=== PATIENT | male | born 1975 | race Caucasian/White ===

== ENCOUNTER 2017-06-27 12:47 | Emergency (ER) | payer OTHER ==
--- NOTE | 2017-06-27 14:13 | ED Physician Documentation ---
PD HPI FOCAL NEURO - Stated complaint Stated Complaint: DIZZY - Chief complaint Chief Complaint: Neuro - History obtained from History obtained from: Patient - History of Present Illness Timing - onset: How many days ago (5) Timing - duration: Days (5) Timing - details: Abrupt onset (with position change at the time), Waxing and waning Severity of deficit: Moderate (when he moves his head or gets up; no dizziness when he sits still/ holds head still.) Weakness: No: Face, Arm, Hand, Leg, Foot, Right, Left, Other Numbness: No: Face, Arm, Hand, Leg, Foot, Right, Left, Other Associated symptoms: Nausea / vomiting (nauseated when feeling most dizzy, improves when resting). No: Headache, Syncope, Fall, Head injury, Fever Baseline status: positive: A&OX3, ambulatory, indep Similar symptoms before: Has not had sx before Recently seen: Not recently seen Review of Systems Constitutional: denies: Fever, Chills Eyes: denies: Loss of vision, Decreased vision Ears: denies: Loss of hearing, Ear pain, Drainage/discharge, Tinnitus/ringing Nose: reports: Congestion. denies: Rhinorrhea / runny nose, Sinus pressure / pain Throat: denies: Sore throat Respiratory: denies: Cough Skin: denies: Rash, Lesions Neurologic: denies: Focal weakness, Numbness, Altered mental status, Headache, Head injury PD PAST MEDICAL HISTORY - Past Medical History Past Medical History: Yes Cardiovascular: Hypertension Respiratory: Asthma Neuro: Headache/migraine - Past Surgical History Past Surgical History: No - Present Medications Home Medications: Ambulatory Orders Medication Instructions Recorded Confirmed Albuterol Sulfate [Proventil Hfa 1 - 2 puffs INH Q4H PRN 06/27/17 06/27/17 Inhaler] Dexamethasone [Decadron] 4 mg PO DAILY #5 tablet 06/27/17 Lisinopril 20 mg PO DAILY 06/27/17 06/27/17 Meclizine [Antivert] 25 mg PO Q6H PRN #30 tablet 06/27/17 - Allergies Allergies/Adverse Reactions: Allergies Allergy/AdvReac Type Severity Reaction Status Date / Time No Known Drug Allergies Allergy Verified 06/27/17 12:58 - Social History Does the pt smoke?: Yes Smoking Status: Current every day smoker PD ED PE NORMAL - Vitals Vital signs reviewed: Yes - General General: Alert and oriented X 3, No acute distress, Well developed/nourished - HEENT HEENT: PERRL, EOMI (with nystagmus to the right), Ears normal, Pharynx benign - Neck Neck: Supple, no meningeal sign, No adenopathy, No bruit - Cardiac Cardiac: RRR, No murmur - Respiratory Respiratory: Clear bilaterally - Derm Derm: Normal color, Warm and dry, No rash - Extremities Extremities: No tenderness to palpate, Normal ROM s pain - Neuro Neuro: Alert and oriented X 3, 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 Seems peripheral. ), d/w patient Departure - Departure Disposition: Home, Self Care Clinical Impression: Vertigo Condition: Stable Record reviewed to determine appropriate education?: Yes Instructions: ED Vertigo Unspecified Follow-Up: [facility] [Provider Group] Prescriptions: Meclizine [Antivert] 25 mg PO Q6H PRN #30 tablet PRN Reason: Vertigo Dexamethasone [Decadron] 4 mg PO DAILY #5 tablet Comments: Activity and position as tolerated to reduce the vertigo symptoms. No vigorous activity and be safe for the next 2-3 days. Decadron daily for the 5 more days to reduce inflammation. Meclizine every 6-8 hours as needed for dizziness. Recheck if not better over the next several days and return sooner if other associated or diffuse symptoms develop. Discharge Date/Time: 06/27/17 15:15
[2017-06-27] MEDS ORDERED: MECLIZINE 12.5 MG TABLET PO STA (14:50)
[2017-06-27] MEDS ORDERED: DEXAMETHASONE 10 MG/ML VIAL PO STA (14:50)
[2017-06-27] MEDS ORDERED: MECLIZINE 12.5 MG TABLET PO ONE (15:01)
[2017-06-27] MEDS ORDERED: CHERRY SYRUP 10 ML UDC PO ONE (15:02)
[2017-06-27] MEDS ORDERED: DEXAMETHASONE 10 MG/ML VIAL ONE (15:02)
[2017-06-27 15:15] VITALS: BP 138/97
== END 2017-06-27 15:15 | disposition home or self-care (01) ==
LOC: ED 12:47
DX: R42 Dizziness and giddiness (principal); I10 Essential (primary) hypertension; J45.909 Unspecified asthma, uncomplicated; F17.200 Nicotine dependence, unspecified, uncomplicated
CPT/HCPCS: 99283; A9270

== ENCOUNTER 2021-06-26 15:07 | Emergency (ER) | payer OTHER ==
[2021-06-26 15:19] VITALS: BP 149/93
--- NOTE | 2021-06-26 16:17 | XRAY Report ---
PROCEDURE: Shoulder 3 View LT INDICATIONS: fall shoulder pain TECHNIQUE: 3 views of the shoulder were acquired. COMPARISON: None. FINDINGS: Bones: No fractures or dislocations. No suspicious bony lesions. Visualized ribs appear intact. Soft tissues: No suspicious soft tissue calcifications. IMPRESSION: No visualized acute fracture or dislocation. However, occult injury cannot be excluded. Recommend short interval imaging follow-up in 7-10 days as clinically indicated for additional evalua tion. Reviewed by: Ofelia Gann MD on 06/26/2021 4:16 PM PDT Approved by: Ofelia Gann MD on 06/26/2021 4:16 PM PDT Station ID: [id number]
--- NOTE | 2021-06-26 16:29 | ED Physician Documentation ---
History of Present Illness - Stated complaint Stated Complaint: L SHOULDER PX - Chief complaint Chief Complaint: Trauma Ext - History obtained from History obtained from: Patient - History of Present Illness Timing: Last night Pain level max: 8 Pain level now: 6 - Additonal information Additional information: 45-year-old male presents to the emergency department with left shoulder pain after sliding into a base while playing softball last night. Pain increased today. Worse with movement, better with rest. No prior shoulder injuries. No headache. No neck pain. No back pain. Taken Motrin without relief. Review of Systems Constitutional: denies: Fever, Chills GI: denies: Vomiting, Diarrhea Neurologic: denies: Headache PD PAST MEDICAL HISTORY - Past Medical History Past Medical History: Yes Cardiovascular: Hypertension Respiratory: Asthma Neuro: None Endocrine/Autoimmune: None GI: None : None HEENT: None Psych: None Musculoskeletal: None Derm: None - Past Surgical History Past Surgical History: No - Present Medications Home Medications: Ambulatory Orders Medication Instructions Recorded Confirmed Albuterol Sulfate [Proventil Hfa 1 - 2 puffs INH Q4H PRN 06/27/17 06/27/17 Inhaler] Meclizine [Antivert] 25 mg PO Q6H PRN #30 tablet 06/27/17 dexAMETHasone [Decadron] 4 mg PO DAILY #5 tablet 06/27/17 lisinopriL [Lisinopril] 20 mg PO DAILY 06/27/17 06/27/17 - Allergies Allergies/Adverse Reactions: Allergies Allergy/AdvReac Type Severity Reaction Status Date / Time No Known Drug Allergies Allergy Verified 06/27/17 12:58 - Social History Does the pt smoke?: Yes Smoking Status: Current every day smoker PD ED PE NORMAL - Vitals Vital signs reviewed: Yes - General General: Alert and oriented X 3, No acute distress, Well developed/nourished - HEENT HEENT: Atraumatic, PERRL, Moist mucous membranes - Neck Neck: Supple, no meningeal sign, No bony TTP - Cardiac Cardiac: RRR, Strong equal pulses - Respiratory Respiratory: No respiratory distress, Clear bilaterally - Abdomen Abdomen: Soft, Non tender, Non distended - Back Back: No spinal TTP - Derm Derm: Warm and dry - Extremities Extremities: Other (Tender to palpation over the left glenohumeral joint. Limited range of motion secondary to pain, especially external rotation and abduction. Neurovascular intact including axillary nerve. Otherwise normal exam of the shoulder. No deformity.) - Neuro Neuro: Alert and oriented X 3 - Psych Psych: Normal mood, Normal affect Results - Vitals Vitals: Oxygen O2 Source Room air - Rads (name of study) Left shoulder x-ray Radiology: Final report received, EMP read contemporaneously, See rad report (No acute abnormality) PD MEDICAL DECISION MAKING - ED course Complexity details: reviewed results, re-evaluated patient, considered differential, d/w patient ED course: Patient with what appears to be a left shoulder sprain, likely rotator cuff injury. Placed in a sling for comfort. Neurovascularly intact. Declines any pain medication here for home. Encourage gentle stretching and follow-up with his doctor. Patient counseled regarding signs and symptoms for which I believe and urgent re-evaluation would be necessary. Patient with good understanding of and agreement to plan and is comfortable going home at this time This document was made in part using voice recognition software. While efforts are made to proofread this document, sound alike and grammatical errors may occur. Departure - Departure Disposition: 01 Home, Self Care Clinical Impression: Rotator cuff tendonitis Qualifiers: Laterality: left Qualified Code(s): M75.82 - Other shoulder lesions, left shoulder Condition: Good Instructions: ED Torn Rotator Cuff, ED Tendinitis Rotator Cuff Follow-Up: your,doctor in 1 week [Other] [facility] [Provider Group] Comments: Your xray does not show any acute abnormalities today. Wear the sling for co mfort. Continue the stretching as we talked about. If you are still having pain in 1 to 2 weeks, follow-up with orthopedics for further care. Discharge Date/Time: 06/26/21 16:42
== END 2021-06-26 16:42 | disposition home or self-care (01) ==
LOC: ED 15:07
DX: M77.8 Other enthesopathies, not elsewhere classified (principal); I10 Essential (primary) hypertension; F17.200 Nicotine dependence, unspecified, uncomplicated
CPT/HCPCS: 99282; 99283

== ENCOUNTER 2021-09-24 13:39 | Outpatient (CLI) | payer OTHER ==
--- NOTE | 2021-09-24 17:17 | MRI Report ---
PROCEDURE: Shoulder LT W/O INDICATIONS: PAIN IN LEFT SHOULDER TECHNIQUE: Noncontrast oblique coronal T2 fast spin echo with fat saturation, oblique sagittal T1 spin echo and T2 fast spin echo with fat saturation, axial T1 spin echo and T2 fast spin echo with fat saturation t hrough the shoulder. COMPARISON: 06/26/2021. FINDINGS: Image quality: There is mild motion artifact. Rotator cuff: There is mild tendinopathy in the distal supraspinatus and infraspinatus tendons. There is mild bursal surface partial thickness tearing at the insertion of the supraspinatus involving the anterior fibers. There is moderate to severe partial tearing of the subscapularis centered at the my otendinous junction with edema tracking proximally. There is also tendinopathy and moderate partial t earing of the distal subscapularis tendon at its insertion. The teres minor appears intact. No rotato r cuff muscle atrophy on sagittal images. Bones and bursae: No bone marrow contusions or fractures. There is moderate acromioclavicular joint degeneration. The acromion demonstrates conventional anatomy, without an os acromiale. Minimal subac romial/subdeltoid bursal fluid is present. There is mild degeneration of the glenohumeral joint. A sm all glenohumeral joint effusions present. Capsule and soft tissues: There is tearing within the posterosuperior and posterior labrum. The long head of the biceps tendon appears intact but demonstrates mild medial subluxation secondary to partia l tearing of the subscapularis. There is a small amount of associated tenosynovial fluid. IMPRESSION: 1. Partial tearing of the subscapularis including moderate to severe tearing at the myotendinous junc tion and moderate tearing distally at its insertion. No fatty muscle atrophy. 2. Small focus of mild bursal surface articular sided tearing in the distal supraspinatus at its inse rtion. 3. Moderate acromioclavicular joint degeneration with minimal subacromial/subdeltoid bursa fluid. 4. Tear of the posteroinferior labrum. 5. Mild medial subluxation of the biceps tendon secondary to partial tearing of the subscapularis. Reviewed by: Cody White MD on 09/24/2021 5:16 PM PST Approved by: Cody White MD on 09/24/2021 5:16 PM PST Station ID: [id number]
== END 2021-09-24 13:40 | disposition home or self-care (01) ==
LOC: DI 13:39
PROVIDERS: ATTEND Student in an Organized Health Care Education/Training Program
DX: M75.112 Incomplete rotator cuff tear or rupture of left shoulder, not specified as traumatic (principal); M19.012 Primary osteoarthritis, left shoulder; S43.492A Other sprain of left shoulder joint, initial encounter; M67.814 Other specified disorders of tendon, left shoulder

== ENCOUNTER 2022-01-30 11:12 | Observation (INO) | payer OTHER ==
[~2022-01-30 11:12] MED LIST: CEFAZOLIN SODIUM IN 0.9 % NACL 2 GM/50 ML BAG IV ONE; DEXAMETHASONE 4 MG/ML VIAL ONE; LIDOCAINE-MPF 2% 5 ML VIAL ONE; MIDAZOLAM 2 MG/2 ML VIAL ONE; PROPOFOL 200 MG/20 ML VIAL IVP ONE; ROCURONIUM 50 MG/5 ML VIAL ONE; ROPIVACAINE 0.5% PF 20 ML AMPULE ONE; fentaNYL 100 MCG/2 ML VIAL ONE
[2022-01-30] MEDS ORDERED: EPINEPHrine 1 MG/ML AMP ONE (11:18)
[2022-01-30] MEDS ORDERED: LACTATED RINGERS 1,000 ML IV ONE ×2 (11:40→13:10)
--- NOTE | 2022-01-30 12:12 | ANESTHESIA ---
Pre-Anesthesia VS, & Labs - Diagnosis L partial thickness rotator cuff tear - Procedure L RCR arthroscopic Vital Signs: Temp Pulse Resp BP Pulse Ox 37.2 C 88 18 157/106 H 93 01/30/22 11:42 01/30/22 11:42 01/30/22 11:42 01/30/22 11:42 01/30/22 11:42 Height: 6 ft 8 in Weight (kg): 117.1 kg Body Mass Index: 28.3 BMI Classification: Overweight - NPO >8 hours - Lab Results Lab results reviewed: Yes Home Medications and Allergies Home Medications: Ambulatory Orders Amlodipine Besylate [Norvasc] 10 mg PO DAILY 01/23/22 Albuterol Sulfate [Proventil Hfa Inhaler] 1 - 2 puffs INH Q4H PRN 06/27/17 lisinopriL [Lisinopril] 20 mg PO DAILY 06/27/17 Amlodipine Besylate [Norvasc] 10 mg PO DAILY 01/23/22 Allergies/Adverse Reactions: Allergies Allergy/AdvReac Type Severity Reaction Status Date / Time No Known Drug Allergies Allergy Verified 01/30/22 11:51 Anes History & Medical History - Anesthetic History Anesthesia Complications: reports: No previous complications Family history of Anesthesia Complications: Denies Family history of Malignant Hyperthermia: Denies - Medical History Cardiovascular: reports: None, Hypertension Pulmonary: reports: Asthma Gastrointestinal: reports: GERD Urinary: reports: None Neuro: reports: None Musculoskeletal: reports: None, Osteoarthritis Endocrine/Autoimmune: reports: None Blood Disorders: reports: None Skin: reports: None Smoking Status: Current every day smoker Exam General: Alert, Oriented x3 Dental: WNL Mouth Openin Fingerbreadth Neck Mobility: Normal Mallampati classification: II Thyromental Distance: 4-6 cm Respiratory: Lungs clear, Normal breath sounds, No respiratory distress Cardiovascular: Regular rate Neurological: Normal speech Mental/Cognitive Status: Alert/Oriented X3, Normal for patient Cognitive Status: Within normal limits Plan Anesthesia Type: General, Interscalene Block Regional Block: Per Surgeon's request for Post Op pain control Consent for Procedure(s) Verified and Reviewed: Yes Code Status: Attempt Resuscitation ASA classification: 2-Mild systemic disease Is this case an emergency?: No
[2022-01-30] MEDS ORDERED: KETOROLAC 15 MG/ML VIAL IVP STA (12:17)
[2022-01-30] MEDS ORDERED: oxyCODONE 5 MG TABLET PO PRN (12:17)
[2022-01-30] MEDS ORDERED: DEXAMETHASONE 4 MG/ML VIAL ONE (13:13)
[2022-01-30] MEDS ORDERED: ALBUTEROL 8 GM INHALER INH ONE (13:15)
[2022-01-30] MEDS ORDERED: IPRATROPIUM 0.2 MG/ML NEB INH PRN (13:23)
[2022-01-30] MEDS ORDERED: ONDANSETRON 4 MG/2 ML VIAL IVP PRN ×2 (13:23→13:56)
[2022-01-30] MEDS ORDERED: SODIUM CHLORIDE FLUSH 0.9% 10 ML SYRINGE IVP PRN (13:23)
[2022-01-30] MEDS ORDERED: ALBUTEROL NEB 2.5 MG/3 ML INH PRN (13:23)
[2022-01-30] MEDS ORDERED: ACETAMINOPHEN 325 MG TABLET PO PRN (13:23)
[2022-01-30 13:44] LABS: BASOPHILS # (AUTO) 0.1 10^3/uL (0.0-0.1); BASOPHILS % (AUTO) 0.8 %; EOSINOPHILS # (AUTO) 0.2 10^3/uL (0.0-0.7); HCT - HEMATOCRIT 49.7 % (42.0-52.0); HGB - HEMOGLOBIN 17.2 g/dL (14.0-18.0); LYMPHOCYTES # (AUTO) 1.4 10^3/uL (1.5-3.5); LYMPHOCYTES % (AUTO) 14.3 %; MEAN CORPUSCULAR HGB CONC 34.6 g/dL (32.0-36.0); MEAN CORPUSCULAR VOLUME 92.6 fL (80.0-94.0); MEAN PLATELET VOLUME 9.6 fL (7.4-11.4); MONOCYTES # (AUTO) 0.6 10^3/uL (0.0-1.0); MONOCYTES % (AUTO) 6.6 %; NEUTROPHILS # (AUTO) 7.2 10^3/uL (1.5-6.6); PLT - PLATELET COUNT 228 10^3/uL (130-450); RED BLOOD COUNT 5.37 10^6/uL (4.70-6.10); RED CELL DISTRIBUTION WIDTH 12.3 % (12.0-15.0); WHITE BLOOD COUNT 9.5 x10^3/uL (4.8-10.8)
--- NOTE | 2022-01-30 13:52 | XRAY Report ---
PROCEDURE: Chest 1 View X-Ray INDICATIONS: ASTHMA, PULM EDEMA TECHNIQUE: One view of the chest was acquired. COMPARISON: None. FINDINGS: SUPPORT DEVICES: None. LUNGS/PLEURA: Coarsened interstitial markings. No focal consolidation, pleural effusion or space-occu pying pneumothorax. MEDIASTINUM: The cardiomediastinal silhouette is within normal limits. BONES/SOFT TISSUES: No acute abnormality. IMPRESSION: 1.No acute cardiopulmonary abnormality. Reviewed by: Albin Giles MD on 01/30/2022 1:51 PM PDT Approved by: Albin Giles MD on 01/30/2022 1:51 PM PDT Station ID: [id number]
[2022-01-30] MEDS ORDERED: fentaNYL 100 MCG/2 ML VIAL IVP PRN (13:56)
[2022-01-30] MEDS ORDERED: NALOXONE 0.4 MG/ML VIAL IVP PRN (13:56)
[2022-01-30] MEDS ORDERED: MORPHINE 2 MG/ML CARPUJECT IVP PRN (13:56)
[2022-01-30] MEDS ORDERED: ePHEDrine 50 MG/ML VIAL IVP PRN (13:56)
[2022-01-30] MEDS ORDERED: HYDROmorphone 0.5 MG/0.5 ML SYRINGE IVP PRN (13:56)
[2022-01-30] MEDS ORDERED: METOCLOPRAMIDE 10 MG/2 ML VIAL IVP PRN (13:56)
[2022-01-30] MEDS ORDERED: ATROPINE ABBOJECT 1 MG/10 ML SYRINGE IVP PRN (13:56)
--- NOTE | 2022-01-30 13:56 | CONSULTATION NOTE ---
Consultation Report: Pt to room 3 after ISB block in PACU, transferred self to OR table. Monitors and O2 applied for induction. VSS prior. DLx1 after difficult mask ventilation w/OAW. 7.5cm ETT to 23 with MAC4. Unable to produce ETCO2 despite repositioning tube. Lung sounds absent with bagging. SATs 90-92. DL to confirm ETT in trachea, tube through cords. Unable to ventilate with bag after Albuterol x6 puffs. ETT pulled, difficult mask ventilation producing TV20-30 cc 50mmHg. SATs 80-85% Glidescope to view of 1. 7.5 ETT to 23. Unable to produce ETCO2 despite Albuterol, repositioning, and lung sound auscultation. [id number]. Full reversal of Rocuronium with Suggamadex. SATs 85-88%. Lung sounds with wheezing throughout. HOB up to 30 degrees. Patient extubated awake, to mask O2. Sats 90-92% with continuous cough. Pt becoming more alert, continuing with non- productive cough. Situation explained to patient in OR. To PACU, sats 94%, patient still coughing. PCXR obtained. Hospitalist consulted. Will continue to follow during stay.
[2022-01-30 13:58] LABS: ALBUMIN 4.3 g/dL (3.2-5.5); ALBUMIN/GLOBULIN RATIO 1.4 (1.0-2.2); BILIRUBIN,TOTAL 1.4 mg/dL (0.2-1.0); CALCIUM 9.3 mg/dL (8.5-10.3); CREATININE 0.9 mg/dL (0.6-1.2); POTASSIUM 4.6 mmol/L (3.5-5.0); TOTAL PROTEIN 7.4 g/dL (6.7-8.2)
[2022-01-30] MEDS ORDERED: LACTATED RINGERS 1,000 ML IV SCH (14:00)
[2022-01-30 14:03] LABS: ABG BASE EXCESS -0.9 mmol/L (-2.0-3.0); ABG HCO3 22.5 mmol/L (22.0-26.0); ABG OXYGEN SATURATION 94 % (94-98); ABG PCO2 34 mmHg (34-45); ABG PH 7.43 (7.35-7.45); ABG PO2 64 mmHg (80-100); ABG TCO2 23.6 MMOL/L (21.0-29.0); ALLEN TEST POSITIVE
--- NOTE | 2022-01-30 14:18 | ANESTHESIA POST OP EVALUATION ---
Anesthesia Post Eval - Post Anesthesia Eval Vitals: Last Vital Signs Temp 37.2 C 01/30/22 13:35 Pulse 75 01/30/22 14:00 Resp 15 01/30/22 14:00 BP 142/86 H 01/30/22 14:00 Pulse Ox 94 01/30/22 14:00 CV Function Including HR & BP: Stable Pain Control: Satisfactory Nausea & Vomiting: Negative Mental Status: Baseline Respiratory Status: Airway Patent Hydration Status: Satisfactory Anesthesia Complications: None - Other Details/Therapies Other Details/Therapies: Pt to ICU for overnight monitoring.
--- NOTE | 2022-01-30 14:20 | HISTORY & PHYSICAL EXAMINATION ---
Chief Complaint - Chief Complaint Chief Complaint: Severe bronchospasm while in OR, per Anesthesia History of Present Illness - Admitted From Admitted From:: PACU - History Obtained From History obtained from: Anesthesia and the patient - History of Present Illness HPI Comment/Other: This is a 46-year-old white male with history of hypertension on Lisinopril and amlodipine, a smoker, with a history of exercise-induced and allergy-season asthma for which he uses inhaled albuterol weekly or up to twice a day during allergy season. The patient was scheduled to undergo elective orthopedic procedure with an arthroscopy today. He was seen by anesthesia for preop clearance today, and assigned ASA level 2. While he was in the OR, being put under anesthesia for the procedure, after having paralysis medications administered, the anesthesiologist said he could not bag him, as the patient had severe ventilatory restriction. The patient's oxygen saturation dropped. The orthopedic procedure in the OR procedure was never started, not even site prepped and was cancelled. The patient received Decadron, albuterol and reversal of his anesthetic. A CXR was ordered. As he awoke in PACU, he was coughing excessively and had audible wheezing. The anesthesiologist and the orthopedic surgeon contacted the Hospitalist because of this complication, and the patient will be directly placed in an Observation status bed for managing his acute bronchospasm. We discussed his CODE STATUS and he wants to be a Full Code. History - Past Medical History Cardiovascular: reports: None, Hypertension Respiratory: reports: Asthma (Diagnosed when he was 23, after being exposed to insinerator dust while in the [employer] starting at age 21) Neuro: reports: None Endocrine/Autoimmune: reports: None GI: reports: GERD : reports: None HEENT: reports: None Psych: reports: None, Anxiety, Panic attacks Musculoskeletal: reports: None, Osteoarthritis Derm: reports: None MRSA Hx?: Yes - Family & Social History Family History: Mother: Asthma, Cancer (breast), Father: Alive and Well (sister has RA), Sister: Alive and Well, Brother: Alive and Well Family History Comment/Other: He has no children. 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 He smokes 1/2 to 1- 1/4 cigarette packs/day, the higher amount when he is "stressed". He lives with his , the 's daughter and daughter's and child. - Substance History Use: Uses substance without health or social issues: Tobacco Tobacco Details: Cigarettes - POLST Patient has POLST: No POLST Status: Full Code Meds/Allgy - Home Medications Home Medications: Ambulatory Orders Medication Instructions Recorded Confirmed Albuterol Sulfate [Proventil Hfa 1 - 2 puffs INH Q4H PRN 06/27/17 01/30/22 Inhaler] lisinopriL [Lisinopril] 20 mg PO DAILY 06/27/17 01/30/22 Amlodipine Besylate [Norvasc] 10 mg PO DAILY 01/23/22 01/30/22 oxyCODONE [Roxicodone] 5 mg PO Q4-6H #10 tablet 01/30/22 - Allergies Allergies/Adverse Reactions: Allergies Allergy/AdvReac Type Severity Reaction Status Date / Time No Known Drug Allergies Allergy Verified 01/30/22 11:51 Review of Systems - Respiratory Respiratory: reports: Wheezing (He has never had PFTs. He has never been on more than just albuterol inhaler prn and very rare inhaled steroids. He has never undergone skin testing for allergens.) - All Other Systems All Other Systems: reports: Reviewed and negative (He has had 2 Covid vaccinations, no boosters.) Exam - Vital Signs Vital Signs: Vital Signs x48h Temp Pulse Resp BP Pulse Ox 01/30/22 14:00 75 15 142/86 H 94 01/30/22 13:50 74 13 152/96 H 94 01/30/22 13:35 37.2 C 77 13 141/92 H 95 01/30/22 13:25 77 20 137/103 H 93 01/30/22 13:15 94 18 147/100 H 95 01/30/22 13:10 37.1 C 90 18 139/116 H 94 01/30/22 11:42 37.2 C 88 18 157/106 H 93 - Physical Exam General Appearance: positive: No acute distress, Alert Eyes Bilateral: positive: Normal inspection, EOMI ENT: positive: ENT inspection nml, No signs of dehydration Neck: positive: No JVD Respiratory: positive: No respiratory distress, Wheezes (in all lung perkins anteriorly amnd posteriorly) Cardiovascular: positive: Regular rate & rhythm, No murmur (heart sounds are nearly inaudible due to his diffuse wheezing) Abdomen: positive: Non-tender, Nml bowel sounds, No distention Skin: positive: Warm, Dry Extremities: positive: Non-tender, No pedal edema Neurologic/Psychiatric: positive: Oriented x3 (Non-focal) Conclusion/Plan - Problem List (1) Bronchospasm, acute Conclusion/Plan: The patient reports that he has exercise-induced asthma and seasonal allergy- induced asthma. He says he starts wheezing for 2 days whenever he is in a new hotel room or exposed to any new environment. He also thinks that he is currently "stressed" which may be like his exercise-induced asthma. We will start treatment with IV steroids and probably switch to a Medrol Dosepak rapid taper at discharge. Will order scheduled bronchodilators and inhaled steroids via nebulizer. Will ask RT to instruct him in proper use of nebulizer and puffer unit dose inhaled treatments. Encourage smoking cessation which will also help his lungs. Formal PFTs and a Pulmonary follow-up will be advised for him. (2) Asthma Conclusion/Plan: He reports that his asthma was officially diagnosed several years after being exposed to insinuate or dust while in the [employer] [place]. He has evidence of right heart strain on his EKG (early R/S transition is seen). He has never had formal PFTs which would be helpful. Encourage smoking cessation which will also help his lungs. Will order a Nicotine patch while here, to decrease nicotine urges. Formal PFTs and a Pulmonary follow-up will be advised for him. (3) HTN (hypertension) Conclusion/Plan: Since Lisinopril and ACEs may have a component in his wheezing and shortness of breath, Lisinopril will be stopped and only Amlodipine will be continued. He reports that there has been discussion about stopping his JESSIE inhibitor with previous PCPs but it was never stopped. If a second antihypertensive agent is needed, we will start perhaps an ARB during this hospital stay. (4) Tobacco use Conclusion/Plan: Encourage smoking cessation which will also help his lungs. We will order a Nicotine patch while he is here, to decrease nicotine urges. - Lab Results Lab results reviewed: Yes Fish Bones: 01/30/22 13:37 01/30/22 13:37 - Diagnostic Imaging Results Diagnostic Imaging Results: positive: Final report reviewed - EKG Results EKG Interpreted Independently: Yes EKG Comparison: Old EKG unavailable EKG Findings: NSR, rate 72, early R/S transition. No old EKG available for comparison.
[2022-01-30] MEDS: SODIUM CHLORIDE FLUSH 0.9% 10 ML SYRINGE IVP SCH (14:52)
[2022-01-30] MEDS: NICOTINE 21 MG PATCH TOP SCH (15:26)
--- NOTE | 2022-01-30 15:30 | PHARMACY PROGRESS NOTE ---
- Best Possible Medication History Admit Date and Time: 01/30/22 1323 Processed by: Nursing Medication History completed: Yes Secondary Source(s): Insurance records As the person ultimately responsible for medication therapy, providers are able to order a medication from an existing home medication list in [facility] via the "Reconcile Routine" prior to Confirmation of that medication by direct support specialist. Such practice is discouraged except when the physician, in their clinical judgment, deems that a medical need exists for a medication without regard to previous use.
[2022-01-30] MEDS: BUDESONIDE 0.5 MG/2 ML NEB INH SCH ×2 (17:47→18:08)
[2022-01-30] MEDS: IPRATROPIUM/ALBUTEROL 3 ML NEB INH SCH ×2 (17:47→20:37)
[2022-01-30] MEDS: methylPREDNISolone SUCCINATE 40 MG/ML VIAL IVP SCH ×2 (18:14→23:34)
[2022-01-30 18:25] LABS: BILIRUBIN,URINE NEGATIVE (NEGATIVE); GLUCOSE, URINE (UA) NEGATIVE (NEGATIVE); KETONES,URINE (UA) NEGATIVE (NEGATIVE); LEUKOCYTE ESTERASE, URINE NEGATIVE (NEGATIVE); NITRITE,URINE NEGATIVE (NEGATIVE); OCCULT BLOOD,URINE NEGATIVE (NEGATIVE); PH,URINE 8.5 PH (5.0-7.5); PROTEIN,URINE NEGATIVE (NEGATIVE); UROBILINOGEN,URINE 0.2 (NORMAL) E.U./dL (NORMAL)
[2022-01-30 18:26] LABS: CLARITY,URINE CLEAR (CLEAR)
[2022-01-30] MEDS ORDERED: ALBUTEROL NEB 2.5 MG/3 ML INH SCH (19:00)
[2022-01-31] MEDS: SODIUM CHLORIDE FLUSH 0.9% 10 ML SYRINGE IVP SCH ×2 (01:51→08:31)
[2022-01-31 04:57] LABS: HCT - HEMATOCRIT 46.3 % (42.0-52.0); HGB - HEMOGLOBIN 16.1 g/dL (14.0-18.0); MEAN CORPUSCULAR HEMOGLOBIN 31.7 pg (27.0-31.0); MEAN CORPUSCULAR HGB CONC 34.8 g/dL (32.0-36.0); MEAN CORPUSCULAR VOLUME 91.1 fL (80.0-94.0); MEAN PLATELET VOLUME 10.1 fL (7.4-11.4); NEUTROPHILS % (AUTO) 88.5 %; PLT - PLATELET COUNT 232 10^3/uL (130-450); RED BLOOD COUNT 5.08 10^6/uL (4.70-6.10); RED CELL DISTRIBUTION WIDTH 11.9 % (12.0-15.0); WHITE BLOOD COUNT 11.9 x10^3/uL (4.8-10.8)
[2022-01-31 04:58] LABS: BASOPHILS % (AUTO) 0.2 %; LYMPHOCYTES % (AUTO) 8.2 %; MONOCYTES # (AUTO) 0.3 10^3/uL (0.0-1.0); MONOCYTES % (AUTO) 2.5 %; NEUTROPHILS # (AUTO) 10.5 10^3/uL (1.5-6.6)
[2022-01-31 05:07] LABS: CREATININE 0.8 mg/dL (0.6-1.2); POTASSIUM 4.1 mmol/L (3.5-5.0)
[2022-01-31 05:08] LABS: CALCIUM 9.3 mg/dL (8.5-10.3)
[2022-01-31] MEDS: methylPREDNISolone SUCCINATE 40 MG/ML VIAL IVP SCH (05:18)
[2022-01-31] MEDS: BUDESONIDE 0.5 MG/2 ML NEB INH SCH (06:30)
[2022-01-31] MEDS: IPRATROPIUM/ALBUTEROL 3 ML NEB INH SCH (06:30)
--- NOTE | 2022-01-31 08:30 | Discharge Plan ---
Discharge Plan Problem Reviewed?: Yes Disposition: Home, Self Care Condition: Stable Prescriptions: methylPREDNISolone [Medrol Dose Pack] 1 each PO .PACKAGEINSTRUCTIONS 6 Days #1 each Amlodipine Besylate [Norvasc] 10 mg PO DAILY #30 tab Albuterol Sulfate [Proair Hfa Inhaler] 2 puffs INH Q4H PRN #1 inhaler PRN Reason: Shortness Of Air/Wheezing Budesonide [Pulmicort] 0.5 mg INH RTBID #1 neb oxyCODONE [Roxicodone] 5 mg PO Q4-6H #10 tablet Tiotropium [place] [Spiriva Respimat] 4 gm IH BID #1 inh Diet: Low Sodium Activity Restrictions: No Restrictions Shower Restrictions: No Driving Restrictions: No Instruction Topics: ED Asthma Acute Ch Health Concerns: You were hospitalized for treating a severe bronchospasm episode that occurred in the OR, during induction of anesthesia. It cannot be determined if you had an allergic reaction to one of the medications used by Anesthesia, or from another cause. You needed [id number] nebulized bronchodilator treatments and steroids. You are being sent home with new prescriptions for inhalers to manage your asthma and a Medrol Dose-Franky, for a rapid steroid taper treatment. Amlodipine was refilled and the Albuterol inhaler is a slightly stronger dose and was also refilled for you. All new prescriptions were electronically sent to your [facility] pharmacy in [place]. In order to be re-scheduled for arthroscopy under anesthesia again, you will need to be cleared by a Lumber Press Operator and/or Linux Unix System Administrator, so that the offending agent/medication can is determined. No Anesthesiologist will be able to put you under anesthesia without this being established. The medication that was used on you in the OR is called Rencuronium. Also, your medication, Lisinopril, may be adding to the cough and lung problem, therefore it should be stopped and not used from now on. With using just your Amlodipine, your blood pressure was not elevated, so for now just Amlodipine should be continued. Plan of Treatment: As above. Care Goals: Improvement in symptoms and stabilization are the goals. Assessment: The patient understands and is agreeable with the plan. Additional Instructions or Follow Up instructions: If you have new or worsening symptoms, call your PCP for advice or come to the ED. Please see your PCP in the next 7 to 10 days and get a referral to a Lumber Press Operator and/or Linux Unix System Administrator. No Smoking: If you smoke, Please STOP! Call for help. Follow-up with: FABIÁN DOWNEY MD [Primary Care Provider] -
[2022-01-31] MEDS: NICOTINE 21 MG PATCH TOP SCH (08:31)
[2022-01-31] MEDS ORDERED: amLODIPine 5 MG TABLET PO SCH (09:00)
--- NOTE | 2022-01-31 09:03 | DISCHARGE SUMMARY ---
Discharge Summary Admit Date: 01/30/22 Discharge Date: 01/31/22 Discharging Provider: Dr Madina Jefferson Primary Care Provider: Dr Isabel Montelongo Code Status: Attempt Resuscitation Condition at Discharge: Stable Discharge Disposition: 01 Home, Self Care - HPI History of Present Illness: This is a 46-year-old white male with history of hypertension on Lisinopril and Amlodipine, a smoker, with a history of exercise-induced and allergy-season asthma for which he uses inhaled albuterol weekly or up to twice a day during allergy season. The patient was scheduled to undergo elective orthopedic procedure with an arthroscopy today. He was seen by anesthesia for preop clearance today, and assigned ASA level 2. While he was in the OR, being put under anesthesia for the procedure, after having paralysis medications administered, the anesthesiologist said he could not bag him, as the patient had severe ventilatory restriction. The patient's oxygen saturation dropped to 85%. The orthopedic procedure in the OR procedure was never started, not even site prepped and it was cancelled. The patient received Epinephrine, Decadron, albuterol and reversal of his anesthetic. A CXR was ordered. As he awoke in PACU, he was coughing excessively and had audible wheezing. The anesthesiologist and the orthopedic surgeon contacted the Hospitalist because of this complication, and the patient will be directly placed in an Observation status bed for managing his acute bronchospasm. We discussed his CODE STATUS and he wants to be a Full Code. - HOSPITAL COURSE Hospital Course: (1) Bronchospasm, acute He had a severe bronchospasm episode that occurred in the OR, during induction of anesthesia. It cannot be determined if this was an allergic reaction to one of the medications used by Anesthesia (Rencuronium), or from another cause. The patient reports that he has exercise-induced asthma and seasonal allergy-induced asthma. He says he starts wheezing for 2 days whenever he is in a new hotel room or exposed to any new environment. We ordered scheduled bronchodilators and inhaled steroids via nebulizer and IV steroids. His CXR was unremarkable and Covid test was negative. He was not wheezing by the next morning and was discharged on a Medrol Dosepak, Proventil inhaler q4h prn, Tiotropium inhaler bid, and Budesonide inhaler bid. In order to be re-scheduled for arthroscopy under anesthesia again, he will need to be cleared by a Stock Ranch Supervisor and/or Power Screwdriver Operator, so that the offending agent/medication can is determined. He was advised that no Anesthesiologist would put him under anesthesia without this being established. 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 He has evidence of right heart strain on his EKG (early R/S transition is seen). He has never had formal PFTs which would be helpful. Formal PFTs and a Pulmonary appointment was advised. (3) HTN (hypertension) Since Lisinopril and ACEs may have a component in his wheezing and shortness of breath, Lisinopril was stopped and only Amlodipine will be continued. He reported that there has been discussion about stopping his JESSIE inhibitor with previous PCPs but it was never stopped. If a second antihypertensive agent is needed, an ARB could be used. His BP was controlled on just his Amlodipine dose while here. (4) Tobacco use We encouraged smoking cessation which will also help his lungs. He got a Nicotine patch while here. - ALLERGIES Allergies/Adverse Reactions: Allergies Allergy/AdvReac Type Severity Reaction Status Date / Time No Known Drug Allergies Allergy Verified 01/30/22 11:51 - MEDICATIONS Home Medications: Ambulatory Orders Medication Instructions Recorded Confirmed oxyCODONE [Roxicodone] 5 mg PO Q4-6H #10 tablet 01/30/22 Albuterol Sulfate [Proair Hfa 2 puffs INH Q4H PRN #1 inhaler 01/31/22 Inhaler] Amlodipine Besylate [Norvasc] 10 mg PO DAILY #30 tab 01/31/22 Budesonide [Pulmicort] 0.5 mg INH RTBID #1 neb 01/31/22 Tiotropium [place] [Spiriva 4 gm IH BID #1 inh 01/31/22 Respimat] methylPREDNISolone [Medrol Dose 1 each PO .PACKAGEINSTRUCTIONS 6 01/31/22 Pack] Days #1 each - PHYSICAL EXAM AT DISCHARGE General Appearance: positive: No acute distress, Alert Eyes Bilateral: positive: Normal inspection, EOMI ENT: positive: ENT inspection nml, No signs of dehydration Neck: positive: Nml inspection, No JVD Respiratory: positive: No respiratory distress, Breath sounds nml Cardiovascular: positive: Regular rate & rhythm, No murmur Abdomen: positive: Non-tender, Nml bowel sounds, No distention Skin: positive: Warm, Dry Extremities: positive: Non-tender, No pedal edema Neurologic/Psychiatric: positive: Oriented x3 (Non-focal) - LABS Result Diagrams: 01/31/22 04:15 01/31/22 04:15 - DIAGNOSTIC IMAGING Diagnostic Imaging Results: Final report reviewed - FOLLOW UP Follow Up: See PCP in 1-2 weeks and get a refferral to Stock Ranch Supervisor and/or Power Screwdriver Operator. - TIME SPENT Time Spent in Discharge (Minutes): 40
[2022-01-31 09:59] VITALS: BP 140/82
== END 2022-01-31 10:10 | disposition home or self-care (01) ==
LOC: SDS 11:12 → ICU 13:23 → MS2 14:21
PROVIDERS: ADMIT Internal Medicine; ATTEND Internal Medicine
DX: M75.102 Unspecified rotator cuff tear or rupture of left shoulder, not specified as traumatic (principal); J98.01 Acute bronchospasm; F17.210 Nicotine dependence, cigarettes, uncomplicated; I10 Essential (primary) hypertension; J45.990 Exercise induced bronchospasm; Z20.822 Contact with and (suspected) exposure to COVID-19; F41.9 Anxiety disorder, unspecified
CPT/HCPCS: 36415; 36600; 71045; 80048; 80053; 81003; 82803; 83735; 84484; 85025; 87635; 93005; 94640; 94664; 96374; 96376; A9270; G0378; G0379; J0690; J7120; J7626; 81001; 87086

== ENCOUNTER 2022-04-08 14:07 | Outpatient (CLI) | payer OTHER ==
[2022-04-09 22:23] VITALS: BP 124/79
--- NOTE | 2022-04-09 22:23 | SLEEP CARE CONSULTATION ---
Information from patient questionnaire entered by Nina Conway MA. I have reviewed and concur with the information entered by Nina Conway MA. This document represents the service I personally performed and the decisions made by me, Leila Franco MD, [facility]. History of Present Illness Service Date and Time: 04/08/2022 1407 Reason for Visit: New patient (ONSET 01/31/2020, NO PRIORS, ) Date of Onset: NOT SURE Usual bedtime: [id number] Snores at night: Yes Observed to quit breathing while asleep: No Sleeps alone due to snoring: No Number of times waking at night: COUPLE Reasons for waking at night: reports: Bathroom Toss, Turn, or Twitch while sleeping: Yes Recalls having dreams: Yes Usually gets out of bed at: [id number] Feels refreshed in the morning: No Morning headache: Yes Sleepy or fatigued during the day: Yes Ever fallen asleep while driving: No Takes day naps: Yes Dreams during day naps: No Prior sleep studies: No Additional HPI information: I had the pleasure of seeing Mr. Evans today regarding the possibility of him having a sleep disorder. As you know, he is a 46-year-old gentleman who complains of loud snore and observed apneas. The patient tells me that he normally goes to bed around 11 pm, and it takes him approximately 20 - 30 minutes to fall asleep. His has to sleep in a separate room. He can recall waking up on the average of 5 - 7 times during the night. Most of the time he wakes up because of having to use the bathroom. He has awakened occasionally because of choking and having to gasp for air. There is a lot of tossing and turning in his sleep. No somniloquy (sleep talking) or somnambulism (sleep walking). Usually, he can recall having dreams. In the morning he usually gets up out of the bed around 6 - 9 a.m. not feeling refreshed nor rested. He usually has a morning headache that goes away within an hour. During the day he complains of feeling sleepy and fatigued. His score on Beaver Sleepiness Scale is 18 out of 24. He never has fallen asleep while driving nor has had any accident due to sleepiness. He usually takes naps during the day. Upon falling asleep during the day he denies having vivid dreams. He has never had sleep paralysis, experienced cataplexy or symptoms of restless leg syndrome. He reports having impaired concentration during the day. - Parasomnia Symptoms Ever been unable to move upon waking from sleep: No Walks in sleep: No Talks in sleep: No Ever acted out dreams in sleep: No Ever felt weak in the knees when startled or emotional: No Bothered by creepy, crawly, restless sensations in legs: No Problems with memory or concentration: Yes Subjective Initial Beaver Sleepiness Scale score: 17 (04/08/2022) Past Medical History Past Medical History: reports: Hypertension, Asthma, GERD Social History The patient's occupation is a AM. Patient is and lives in [place]. Have you smoked in the past 12 months: Yes Cigarettes per day (20/pack): 20 Years of smokin Smoking Pack Years: 28.0 Alcohol use: Yes Alcohol amount and frequency: 2 X WEEKLY Caffeine use: Yes Caffeine amount and frequency: 3-4 X DAILY Family History Family history of sleep disordered breathing: Yes Family Hx Sleep Apnea: Mother: Sleep apnea - Treated Allergies and Home Medications Known drug allergies: No Drug allergies reviewed: Yes Home medication list reviewed: Yes Allergy and home medication list: Allergies No Known Drug Allergies Allergy (Verified 01/30/22 11:51) Review of Systems Cardiovascular: reports: high blood pressure, chest pain Respiratory: reports: shortness of breath, wheeze, chronic cough Gastrointestinal: denies: heartburn, difficulty swallowing, nausea, vomitting, diarrhea, abdominal pain, other Urinary: denies: incontinence, frequency, urgency, impotence, other Neurological: reports: headaches Psychiatric: reports: Attention Deficit Hyperactivity, anxiety Ear/Nose/Throat: reports: wisdom teeth removed Endocrine: denies: thyroid disease, history of goiter, sluggishness, too hot or cold, excessive thirst, increased appetite, increased urination, unexplained weakness, other Musculoskeletal: reports: joint pain Immunologic: denies: sneezing, rash, itching, allergies to food or environment, other Physical Exam Vital signs obtained and entered by: Jasiel CONWAY CMA [facility] Blood Pressure: 124/79 (LEFT, PULSE 82, RESP 18, ) Heart Rate: 80 O2 Saturation: 98 (PAPER MASK) Height: 6 ft 8 in Weight: 260 lb Body Mass Index: 28.5 BMI Classification: Overweight Neck circumference: 15.5 (INCHES) Mood/affect: normal HEENT: No craniofacial malformation Nostrils: patent to airflow Turbinates: normal Septum: midline Mouth and throat: narrow oropharynx Soft palate: long Hard palate: normal Uvula: normal Uvula visualization: 50% Mallampati Class II Tongue: normal in size Tonsils: small Chin and jaw: normal size and position Neck: normal w/o lymphadenopathy or thyromegaly Heart: regular rate and rhythm Lungs: clear bilaterally Extremities: no edema or clubbing Neurologic: intact Impression and Plan IMPRESSION: 1. Obstructive Sleep Apnea-Hypopnea Syndrome, as suggested by history of loud and irregular snoring, observed cessation of breath while asleep, frequent awakenings during the night, unrefreshed sleep, and daytime hypersomnolence. Narrow oropharynx and obesity are common predisposing factors for obstructive sleep apnea-hypopnea syndrome. I recommend proceeding to polysomnography to confirm the diagnosis and to assess severity. I informed the patient of what the sleep studies involve and after some discussion, he agreed to proceed. Plan: 1. Schedule an in-laboratory polysomnography. 2. Avoid long distance driving or when feeling sleepy. 3. Avoid alcohol, sedative and muscle relaxant around bedtime. 4. Attempt to lose weight. 5. Return for follow up after the sleep study. Follow up with Sleep Care in: 1-2 months Visit Type: In Office Time Spent with Patient (minutes): 20 Provider Statement: I spent 100% of the Face to Face Visit with the patient with greater than 50% spent counseling the patient and coordination of care.
== END 2022-04-08 14:08 | disposition home or self-care (01) ==
LOC: SC 14:07
PROVIDERS: ATTEND Internal Medicine Pulmonary Disease
DX: R06.83 Snoring (principal); G47.8 Other sleep disorders; G47.10 Hypersomnia, unspecified; F17.210 Nicotine dependence, cigarettes, uncomplicated; E66.3 Overweight; Z68.28 Body mass index [BMI] 28.0-28.9, adult
CPT/HCPCS: 99202; 99212

== ENCOUNTER 2022-04-14 20:32 | Outpatient (CLI) | payer OTHER | END 2022-04-14 20:33 | disposition home or self-care (01) | LOC: SC 20:32 | PROVIDERS: ATTEND Internal Medicine Pulmonary Disease | DX: G47.33 Obstructive sleep apnea (adult) (pediatric) (principal); G47.61 Periodic limb movement disorder | CPT/HCPCS: 95810 ==